=== PATIENT | female | born 1980 | race Caucasian/White ===

== ENCOUNTER 2020-09-13 07:17 | Emergency (ER) | payer OTHER ==
[~2020-09-13] VITALS: Ht 167.6 cm; Wt 70.3 kg
[2020-09-13 13:44] VITALS: BP 96/51
--- NOTE | 2020-09-15 17:06 | PATH ---
[facility] [address] [place] [address] PATHOLOGY RPT PROCEDURE Name: PIEDAD FUENTES Room #: DEP JARET Dudley#: [id number] Admission: 09/13/20 Date of : 80 Discharge: 09/13/20 Report #: [id number] Path Case #: [id number] [facility] Accession Number: [id number] . 01 Material submitted: . PART A: esophagus - BIOPSY OF DISTAL ESOPHAGUS R/O EOE. Modifiers: distal PART B: esophagus - BIOPSY OF MID ESOPHAGUS R/O EOE. Modifiers: mid . 01 Clinical history: . FOOD CAUGHT IN THROAT, FOOD IMPACTION . 02 Diagnosis: A. Squamous mucosa, distal esophagus, rule out eosinophilic esophagitis, endoscopic biopsy: - Marked esophagitis associated with ulceration as well as numerous intraepithelial eosinophils (up to 40/hpf). . B. Squamous mucosa, mid esophagus, rule out eosinophilic esophagitis, endoscopic biopsy: - Marked esophagitis associated with numerous intraepithelial eosinophils (76/hpf). (IUV:pit 09/15/2020) QTP 09/15/2020 1437 Local . 02 Comment: Examination of the esophageal biopsy tissue shows squamous mucosa with a marked number of intraepithelial eosinophils. Although eosinophils are commonly encountered in inflammation due to reflux esophagitis, the eosinophils in the present specimen are numerous, exceeding 40 - 76/hpf. Apart from reflux esophagitis, potential etiologies for the histologic pattern include allergic and collagen vascular diseases, fungal or parasitic infections, and eosinophilic esophagitis (idiopathic). Please correlate with clinical and endoscopic findings. (IUV:pit 09/15/2020) . 02 Electronically signed: . Mora De Jesus MD, Pathologist NPI- [id number] . 01 Gross description: . A. The specimen is received in formalin, labeled "Piedad Fuentes, biopsy of distal esophagus, R/O EOE". Received are two segments of pale lind soft tissue ranging in size from 0.2 to 0.3 cm in maximum dimensions. The specimen is submitted entirely in cassette A1. . B. The specimen is received in formalin, labeled "Piedad Fuentes, biopsy of mid esophagus, R/O EOE". Received are two [place] [address] PATHOLOGY RPT PROCEDURE Name: PIEDAD FUENTES Room #: DEP JARET Dudley#: [id number] Admission: 09/13/20 Date of : 80 Discharge: 09/13/20 Report #: [id number] Path Case #: [id number] tissue ranging in size from 0.4 to 0.5 cm in maximum dimensions. The specimen is submitted entirely in cassette B1. (CAA; 09/14/2020) QAC/QAC 09/14/2020 1346 Local . 02 Pathologist provided ICD-10: K20.90, K22.10 . 02 CPT . 541642, 294957 Performed at: [address], [place] [id number] MD Jamari Gutierrez MD Phone: [phone] Performed at: [address] [id number] MD Mora De Jesus MD Phone: [phone]
== END 2020-09-13 13:44 | disposition home or self-care (01) ==
LOC: ER 07:17
DX: T18.128A Food in esophagus causing other injury, initial encounter (principal); X58.XXXA Exposure to other specified factors, initial encounter; Y93.89 Activity, other specified; Y92.89 Other specified places as the place of occurrence of the external cause; Y99.8 Other external cause status
CPT/HCPCS: 62110; 62900

== ENCOUNTER 2021-04-14 20:27 | Emergency (ER) | payer BC, OTHER ==
[~2021-04-14] VITALS: Ht 167.6 cm; Wt 70.3 kg
[2021-04-14 21:26] LABS: ABSOLUTE NEUTROPHILS 6.6 thou/uL (1.4-8.2); BASOPHILS 0.5 % (0.0-2.0); EOSINOPHILS 2.7 % (0.0-3.0); HEMATOCRIT 40.9 % (37.0-47.0); HEMOGLOBIN 13.8 gm/dL (12.0-15.0); LYMPHOCYTES 24.9 % (24.0-44.0); MCH 31.9 pg (26.0-34.0); MCHC 33.8 g/dL (28.0-37.0); MCV 94.4 fL (80.0-100.0); MONOCYTES 7.4 % (1.0-8.0); PLATELET COUNT 227 thou/uL (150-400); POLYS 64.5 % (36.0-66.0); RBC 4.33 mil/uL (4.20-5.00); RDW 12.7 % (10.5-14.5); WBC 10.3 thou/uL (4.0-11.0)
[2021-04-14 21:30] LABS: ANION GAP 15 mmol/L (7-16); BUN 15 mg/dL (7-18); CALCIUM 9.3 mg/dL (8.5-10.1); CHLORIDE 98 mmol/L (98-107); CO2 21 mmol/L (21-32); CREATININE 1.3 mg/dL (0.6-1.0); GLUCOSE 134 mg/dL (74-106); POTASSIUM 3.3 mmol/L (3.5-5.1); SODIUM 134 mmol/L (136-145)
[2021-04-14 21:37] LABS: ALBUMIN 4.6 g/dL (3.4-5.0); LIPASE 124 U/L (73-393); SGOT 41 U/L (15-37); SGPT 27 U/L (14-59); TOTAL BILIRUBIN 0.6 mg/dL (0.2-1.0); TOTAL PROTEIN 7.9 g/dL (6.4-8.2); TROPONIN-I <0.06 ng/mL (<0.06)
[2021-04-14 23:05] VITALS: BP 115/66
--- NOTE | 2021-04-15 12:32 | EKG ---
[address] [place] [address] ELECTROCARDIOGRAM REPORT Name: FELICIANO FUENTES [facility] #[facility] [id number] Admission: 04/14/21 Attend Phys: Discharge: 04/14/21 Date of : 80 Report #: [id number] [facility] ED Test Date: 2021-04-14 Test Time: 20:31:45 Pat Name: FELICIANO FUENTES Department: Room: Gender: F Reiki Practitioner: DEMI : 1980 Requested By: Duane Ortiz Order Number: [id number] MD: Jerson Arellano Measurements Intervals Vici Rate: 119 P: 68 DC: 151 QRS: 15 QRSD: 106 T: 51 QT: 356 QTc: 501 Interpretive Statements Sinus tachycardia Poor R wave progression Prolonged QT interval No previous ECG available for comparison Electronically Signed On 04-15-2021 12:32:48 CDT by Jerson Arellano [email or web address] <ELECTRONICALLY SIGNED> By: Jerson Arellano MD, [facility] 04/15/21 1232 30 30 Jerson Arellano MD, FACC /EPI
== END 2021-04-14 23:05 | disposition home or self-care (01) ==
LOC: ER 20:27
PROVIDERS: Emergency Medicine
DX: R13.10 Dysphagia, unspecified (principal); F12.90 Cannabis use, unspecified, uncomplicated